=== PATIENT | male | born 1980 | race Caucasian/White ===

== ENCOUNTER 2021-01-03 12:59 | Emergency (ER) | payer BC, SELFPAY ==
[2021-01-03] VITALS (20 sets, daily range): BP systolic 127–194; BP diastolic 65–100; PULSE 85–103; RESP 16–23; TEMP 36.2; O2SAT 97–100
--- NOTE | ~2021-01-03 | XR_ITS ---
EXAMINATION: XR chest 2V DATE: 01/03/2021 13:12 INDICATION: Dizziness and palpitations. TECHNIQUE: Frontal and lateral views of the chest were obtained. COMPARISON: None. FINDINGS: The chest demonstrates clear lungs without pneumonia, pleural effusion, or pneumothorax. Th e heart size is normal. IMPRESSION: 1. No acute cardiopulmonary disease. Reviewed, dictated and finalized at location A.
--- NOTE | 2021-01-03 13:01 | ECG_ITS ---
Measurements Intervals [place] Rate: 95 P: 65 VT: 125 QRS: 139 QRSD: 116 T: 80 QT: 360 QTc: 454 Interpretive Statements SINUS RHYTHM RIGHT AXIS DEVIATION INCOMPLETE RIGHT BUNDLE BRANCH BLOCK CONSIDER INFERIOR INFARCT, AGE INDETERMINATE BORDERLINE ST-T WAVE ABNORMALITY- HIGH LATERAL LEADS ABNORMAL ECG Electronically Signed On 01-03-2021 15:08:54 CDT by Galo Garcia D.O.
[2021-01-03 13:14] LABS: Basophils Absolute Auto 0.1 K/mm3 (0.0-0.1); Basophils Percent Auto 0.9 % (0.2-1.2); Eosinophils Absolute Auto 0.1 K/mm3 (0-0.3); Eosinophils Percent Auto 0.5 % (0-4.4); Hematocrit 48.3 % (42.0-52.0); Hemoglobin 17.4 g/dL (14.0-18.0); Immature Granulocyte Absolute 0.04 K/mm3 (0.00-0.031); Immature Granulocyte Percent A 0.3 % (0-0.5); Lymphocytes Absolute Auto 2.87 K/mm3 (0.9-3.2); Lymphocytes Percent Auto 22.4 % (18.3-44.2); Mean Corpuscular Hemoglobin 33.5 pg (26-34); Mean Corpuscular Volume 93.1 fl (80-100); Mean Platelet Volume 9.2 fl (7.4-10.4); Monocytes Absolute Auto 0.8 K/mm3 (0.1-0.6); Monocytes Percent Auto 5.9 % (2.6-8.5); Neutrophils Absolute Auto 8.9 K/mm3 (1.3-6.7); Platelet Count Result 381 k/mm3 (150-375); Red Blood Count 5.19 M/mm3 (4.6-6.20); Red Cell Distribution Width 11.7 % (11.5-14.5); White Blood Count 12.8 K/mm3 (4.5-10.0)
[2021-01-03 13:25] LABS: Anion Gap 8 mmol/L (8-16); Blood Urea Nitrogen 9 mg/dL (9-20); Calcium 9.7 mg/dL (8.4-10.2); Carbon Dioxide 28 mmol/L (22-30); Chloride 106 mmol/L (98-107); Estimated Glomerular Filt Rate > 60; Glucose 105 mg/dL (75-110); Potassium 3.9 mmol/L (3.4-5.0); Sodium 142 mmol/L (137-145)
[2021-01-03 13:36] LABS: Troponin I < 0.012 ng/mL (0.000-0.034)
--- NOTE | 2021-01-03 13:36 | ED.ARRPALP ---
HPI - Arrhythmia/Palpitations General Chief Complaint: Arrhythmia/Palpitations Stated Complaint: heart Time Seen by Provider: 01/03/21 13:09 Source: patient Mode of arrival: ambulatory Limitations: no limitations History of Present Illness HPI narrative: Patient is 40 years old white male presented to the ED with fast heartbeat. Patient was driving his car suddenly and started having fast heartbeat, blurry vision, numbness left upper extremity lasted for about 5 minutes then resolved. History of hypertension on metoprolol 50 mg once a day and losartan 100 mg once a day. Patient received half a tablet of Lopressor once he arrived home because his heart rate at that time was about 100. Currently patient feeling okay denying any symptoms. Patient had similar symptoms 4 years ago with negative cardiac catheterization. Patient reports taking his medication daily sometimes he forgets the morning dose and he take it at night.. Patient denies any fever, chills, nausea, vomiting, shortness of breath, chest pain, headache. Related Data Allergies Allergy/AdvReac Type Severity Reaction Status Date / Time No Known Allergies Allergy Verified 01/03/21 13:22 Review of Systems Review of Systems: Narrative: CONSTITUTIONAL: Denies fever, chills, or sweats. EYES: Denies visual changes, redness, or discharge. ENT: Denies rhinorrhea, congestion, sore throat, or otalgia. CARDIOVASCULAR: Denies chest pain, palpitations, or edema. RESPIRATORY: Denies cough or dyspnea. GASTROINTESTINAL: Denies abdominal pain, nausea, vomiting, or diarrhea. GENITOURINARY: Denies dysuria or hematuria. SKIN: Denies rash or itching. MUSCULOSKELETAL: Denies back pain, joint pain, or myalgia. NEUROLOGIC: Denies headache, numbness, or weakness. PSYCHIATRIC: Denies anxiety or depression. [facility] Family History Family History (Updated 04/18/18 @ 14:22 by DOCTOR UNKNOWN) Mother Patient's mother is Other Family history of Alzheimer's disease Family history of malignant neoplasm Social History Social History Smoking status: Current every day smoker Alcohol intake: current Gender identity (if verbalized by the patient): Male Exam Narrative: Exam Narrative: General appearance: Well-developed, well-nourished Skin: Normal color Head: Normocephalic, nontraumatic Eyes: Clear conjunctiva ENT: Oropharynx normal, ears normal, nose normal Neck: Supple, nontender Chest and respiratory: Airway patent, no respiratory distress, no accessory muscle use Heart: Regular rate/rhythm Abdomen: Soft, nontender, no organomegaly, quiet bowel sounds Vascular: Normal peripheral pulses, normal capillary refill. Musculoskeletal: Normal range of motion, nontender back Neurologic: Alert and oriented ?3, [employer] WORK[employer] is normal as tested, no gross motor deficit Course Course Emergency Course: Improving l Vital Signs Vital signs: Vital Signs Temperature 36.2 C L 01/03/21 13:06 Pulse Rate 103 H 01/03/21 13:06 Respiratory Rate 20 01/03/21 13:06 Blood Pressure 194/71 H 01/03/21 13:06 Pulse Oximetry 98 01/03/21 13:06 Temperature 36.2 C L 01/03/21 13:06 Pulse Rate 103 H 01/03/21 13:06 Respiratory Rate 20 01/03/21 13:06 Blood Pressure 194/71 H 01/03/21 13:06 Pulse Oximetry 98 01/03/21 13:06 MDM - Arrhythmia/Palpitations MDM Narrative Medical decision making narrative: Tachyarrhythmia is my concern. Possibly patient does not take his medication as usual. Labs, EKG, chest x-ray ordered. Further plan to follow Differential Diagnosis Differential diagnosis: Likely palpitations, anxiety, sinus tachycardia, artial fibrillation, artial flutter and supraventricula
[2021-01-03 14:29] LABS: INR 0.9; Prothrombin Time 12.3 Seconds (11.1-14.7)
[2021-01-03 14:31] LABS: Partial Thromboplastin Time 31.3 SECONDS (22.3-36.8)
--- NOTE | 2021-01-03 14:34 | PC.NURSE ---
Pt. HR and BP improved without medical intervention. ERP notified and has cancelled lopressor via verbal order readback.
== END 2021-01-03 15:46 | disposition home or self-care (01) ==
PROVIDERS: Emergency Provider Emergency Medicine; PCP Internal Medicine
DX: R00.2 Palpitations (principal); F17.200 Nicotine dependence, unspecified, uncomplicated; I45.10 Unspecified right bundle-branch block; R94.31 Abnormal electrocardiogram [ECG] [EKG]
CPT/HCPCS: 36415; 71046; 80048; 84484; 85025; 85610; 85730; 93005; 99284

== ENCOUNTER 2023-02-09 19:43 | Emergency (ER) | payer BC, SELFPAY ==
[2023-02-09] VITALS (25 sets, daily range): BP systolic 128–139; BP diastolic 86–97; PULSE 69–104; RESP 12–23; TEMP 36.6; O2SAT 94–99
--- NOTE | ~2023-02-09 | XR_ITS ---
XR chest 2V DATE: 02/09/2023 20:31 INDICATION: Chest pain radiating to left arm for one day TECHNIQUE: PA and lateral views COMPARISON: 01/03/2021 PA and lateral chest FINDINGS: Normal heart size. No hilar or mediastinal enlargement. No pulmonary infiltrate or consolid ation, pleural effusion or pulmonary vascular congestion or pneumothorax. IMPRESSION: No active cardiopulmonary disease Reviewed, dictated and finalized at location A.
--- NOTE | 2023-02-09 19:44 | ECG_ITS ---
Measurements Intervals [place] Rate: 101 P: 52 TX: 138 QRS: 97 QRSD: 122 T: 75 QT: 358 QTc: 466 Interpretive Statements SINUS TACHYCARDIA RIGHT AXIS DEVIATION MINIMAL Q WAVES- INFERIOR LEADS BORDERLINE T WAVE ABNORMALITY- HIGH LATERAL LEADS BASELINE ARTIFACT- I, III, AVL BORDERLINE ECG COMPARED TO ECG 01/03/2021 13:07:27 SINUS TACHYCARDIA NOW PRESENT Electronically Signed On 02-09-2023 21:40:12 CDT by Galo Garcia D.O.
[2023-02-09] MEDS: ASPIRIN 81 MG CHEWABLE TABLET 324 MG PO (20:24)
[2023-02-09 20:25] LABS: Basophils Absolute Auto 0.1 K/mm3 (0.0-0.1); Eosinophils Absolute Auto 0.3 K/mm3 (0-0.3); Hematocrit 44.4 % (42.0-52.0); Hemoglobin 15.4 g/dL (14.0-18.0); Immature Granulocyte Absolute 0.04 K/mm3 (0.00-0.031); Immature Granulocyte Percent A 0.4 % (0-0.5); Lymphocytes Absolute Auto 3.73 K/mm3 (0.9-3.2); Lymphocytes Percent Auto 36.3 % (18.3-44.2); Mean Corpuscular HGB Conc 34.7 g/dl (32-36); Mean Corpuscular Hemoglobin 32.2 pg (26-34); Mean Corpuscular Volume 92.7 fl (80-100); Monocytes Absolute Auto 0.7 K/mm3 (0.1-0.6); Monocytes Percent Auto 6.4 % (2.6-8.5); Neutrophils Absolute Auto 5.4 K/mm3 (1.3-6.7); Neutrophils Percent Auto 52.9 % (45.5-73.1); Platelet Count Result 366 k/mm3 (150-375); Red Blood Count 4.79 M/mm3 (4.6-6.20); Red Cell Distribution Width 12.3 % (11.5-14.5); White Blood Count 10.3 K/mm3 (4.5-10.0)
[2023-02-09 20:30] LABS: Alanine Aminotransferase 23 U/L (6-50); Albumin Level 4.2 g/dL (3.5-5.1); Alkaline Phosphatase 59 U/L (38-126); Anion Gap 8 mmol/L (8-16); Aspartate Amino Transferase 30 U/L (17-59); Bilirubin,Total 0.4 mg/dL (0.2-1.3); Blood Urea Nitrogen 10 mg/dL (9-20); Calcium 9.2 mg/dL (8.4-10.2); Carbon Dioxide 27 mmol/L (22-30); Chloride 102 mmol/L (98-107); Estimated Glomerular Filt Rate > 60; Glucose 149 mg/dL (65-110); Lipase 77 U/L (23-300); Potassium 3.4 mmol/L (3.4-5.0); Sodium 137 mmol/L (137-145)
[2023-02-09 20:32] LABS: INR 0.9; Prothrombin Time 12.4 Seconds (11.1-14.7)
[2023-02-09 20:33] LABS: Partial Thromboplastin Time 32.5 SECONDS (22.3-36.8)
[2023-02-09 20:42] LABS: Troponin I < 0.012 ng/mL (0.000-0.034)
[2023-02-09] MEDS: SODIUM CHLORIDE 0.9% IV 2,000 ML 999 ML IV CONT (20:47)
[2023-02-09] MEDS: FAMOTIDINE 20 MG/2 ML VIAL IV PUSH (20:47)
[2023-02-09] MEDS: MAG HYDROX/AL HYDROX/SIMETH 30 ML UDC PO (20:47)
[2023-02-09 23:14] LABS: Troponin I 0.019 ng/mL (0.000-0.034)
[2023-02-10 00:31] VITALS: BP 135/90; PULSE 71; RESP 19; O2SAT 96
[2023-02-10] MEDS: ACETAMINOPHEN 500 MG TABLET 1000 MG PO (00:46)
[2023-02-10] MEDS: KETOROLAC 15 MG/ML VIAL (*BKC) IV PUSH (00:47)
[2023-02-10 00:50] VITALS: PULSE 70; RESP 19
[2023-02-10 02:26] VITALS: BP 124/95; PULSE 78; RESP 17; O2SAT 98
--- NOTE | 2023-02-10 02:46 | ED.GENADULT ---
HPI - General Adult General Chief complaint: Chest Pain Stated complaint: chest pain Time Seen by Provider: 02/09/23 20:06 History of Present Illness HPI narrative: this is a 42-year-old male presenting ED with chief complaint of chest pain. Patient says the pain started this morning and has a burning/acy pain in the center of his chest and epigastric area. He says that it does radiate to his left arm and left neck. It 6/10 intensity. patient states radiates to his neck and left arm although the tingling in his left arm he says has been going on for 3 months. Patient had this several years ago and underwent a significant cardiac cath which he states was normal. Patient says the pain is reproducible when he pushes on the center of his chest. Patient noted some dizziness when he stood up earlier and it resolved after a drink some Gatorade. Patient denies nausea vomiting diaphoresis or exertional component to his chest pain. He does have a history of gastritis and GERD. Related Data Allergies Allergy/AdvReac Type Severity Reaction Status Date / Time No Known Allergies Allergy Verified 02/09/23 19:43 [facility] Past Medical History Medical History Body mass index [BMI] 26.0-26.9, adult (04/18/18) Essential hypertension Fast heart beat Smoking Family History Family History Mother Patient's mother is Other Family history of Alzheimer's disease Family history of malignant neoplasm Social History Social History Smoking packs per day: 1 Smoking cigarettes per day: 20.0 Smoking status: Current every day smoker Tobacco type: cigarettes Alcohol intake: current Substance use: never Substance use type: does not use Living arrangements: with family Occupation/Education: occupation Gender identity (if verbalized by the patient): Male Exam Narrative: APPEARANCE: No apparent distress. Head: atraumatic. EYES: EOMI, NOSE: Atraumatic NECK: Trachea midline RESPIRATORY: No increased rate of breathing , clear to auscultation CARDIOVASCULAR: RRR, no pericardial friction room, no peripheral edema ABDOMINAL: tenderness palpation the epigastric area, no guarding rebound MUSCULOSKELETAl: No obvious deformities NEURO: Alert. Moving 4/4 extremities SKIN:: Warm, dry. Normal color PSYCHIATRIC: Normal affect Course Vital Signs Vital signs: Vital Signs Pulse Rate 104 H 02/09/23 20:03 Temperature 98 F 02/09/23 20:10 Pulse Rate 78 02/10/23 02:26 Respiratory Rate 17 02/10/23 02:26 Blood Pressure 124/95 H 02/10/23 02:26 Pulse Oximetry 98 02/10/23 02:26 Oxygen Delivery Room Air 02/09/23 20:05 Medical Decision Making MDM Narrative Medical decision making narrative: -Presentation: 42-year-old male presenting with burning chest pain. Is reproducible on palpation. 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 -Hx from independent Sources: Girlfriend at bedside -Independent interpretation of studies: CBC within normal limits. Metabolic panel unremarkable. Initial troponin <.012 -> .019 -> .020. Stable. Independent EKG interpretation: Rhythm sinus tachycardia, Rate 101, [place] -[normal], [place] -[normal], QRS [narrow], QTC [normal], T waves -[negative for concerning inversions], ST Segments - [Negative for concerning elevations] Final interpretations: Sinus tachycardia chest x-ray unremarkable. -Discussion of Management/Consultants: -Dx tests considered but not ordered: none -Procedures: none -Interventions
[2023-02-10 03:34] VITALS: BP 126/77; PULSE 71; RESP 16; TEMP 36.6; O2SAT 97
== END 2023-02-10 03:35 | disposition home or self-care (01) ==
PROVIDERS: Emergency Provider Emergency Medicine; PCP Physician Assistant Medical
DX: R07.89 Other chest pain (principal); I10 Essential (primary) hypertension; F17.210 Nicotine dependence, cigarettes, uncomplicated
CPT/HCPCS: 36415; 71046; 80053; 83690; 84484; 85025; 85610; 85730; 93005; 96361; 96374; 96375; 99284; A9270; J1885; J7030